=== PATIENT | male | born 1970 | race African-American/Black ===

== ENCOUNTER → 2018-02-18 | Outpatient (CLI) | payer OTHER ==
--- NOTE | 2018-02-18 15:45 | MRI ---
MRI SPINE LUMBAR WITHOUT CONTRAST CLINICAL HISTORY: 47-year-old male with chronic low back pain and left radicular symptoms. Discectomy approximately 5 years prior. COMPARISON: None. Technique: Multiplanar, multisequence MRI images of the lumbar spine were obtained without the admin istration of contrast. FINDINGS: It should be noted that lack of intravenous contrast precludes distinction between recurrent disc and epidural fibrosis in the setting of postoperative spine. The most caudad, fully-formed intervertebral disc will be labeled L5-S1 for the purpose of this dicta tion. Straightening of the lumbar lordosis as imaged. Alignment is maintained. Apparent left-sided he milaminectomy L5. Vertebral body heights are preserved. There is loss of disc signal L4-S1. Vertebral marrow signal is unremarkable. Heterogenous marrow signal within the sacrum and pelvis, nonspecific. Cord signal is normal. The conus medullaris is normal in signal characteristics and morphology and t erminates at the L1-2 level. T11-T12: Imaged in the sagittal plane only without central canal or neural foraminal stenosis. T12-L1: Small symmetric disc bulge with mild facet arthropathy without central canal or neural forami nal stenosis. L1-L2: Moderate symmetric disc bulge and facet arthropathy without central canal or neural foraminal stenosis. L2-L3: Moderate symmetric disc bulge and facet arthropathy without central canal or neural foraminal stenosis. L3-L4: Large symmetric disc bulge with moderate to severe facet arthropathy with buckled flavum impin ging and flattening the dorsal aspect of the exiting L3 nerve roots bilaterally. L4-L5: Large asymmetric disc bulge with a left foraminal component with severe facet arthropathy and thickened flavum. Central canal measures 8.4 mm. Moderate right and severe left neural foraminal sten osis with flattening of the dorsal aspect of the exiting right L4 nerve root and flattening of the ve ntral dorsal aspect of the exiting left L4 nerve root. Severe left subarticular recess stenosis impin ges upon the transiting L5 nerve root. L5-S1: Large symmetric disc bulge with a left central/foraminal extruded component with subtle inferi or migration that produces compressive flattening of the transiting left S1 nerve root. Flattening of the left ventral thecal sac with central canal measuring 11.1 mm. Severe left subarticular recess st enosis with moderate foraminal stenosis and flattening of the dorsal aspect of the exiting left L5 ne rve root. Moderate right foraminal stenosis with flattening of the dorsal aspect of the exiting right L5 nerve root. Paraspinous soft tissues are unremarkable. IMPRESSION: 1. Multilevel degenerative changes spondyloarthropathy as described, most severe at L5 on the left wi th extruded component. Lack of intravenous contrast precludes complete evaluation. 2. See level by level descriptions above. Reported By:
== END | disposition home or self-care (01) ==
LOC: RAD 10:53
DX: M54.5 Low back pain (principal); M54.16 Radiculopathy, lumbar region
CPT/HCPCS: 72148